=== PATIENT | female | born 1965 | race Caucasian/White ===

== ENCOUNTER 2017-04-07 15:35 | Inpatient (IN) | payer OTHER ==
[~2017-04-07] VITALS: Ht 165.1 cm; Wt 100.1 kg
[~2017-04-07 15:35] MED LIST: AMBEREN; AMLO-280 PO; AMLO5TAB2 PO; ASPI-515 PO; CYCL-259 PO; FOLI-17 PO; FURO40TA6 PO; LACT20SO13 PO; LISI-167 PO; METH500T97 PO; MULT-6 PO; OXYC5TAB3 PO; PANT40TA5 PO; PARO10TA24 PO; POTA20PA8 PO; PRAV10TA2 PO; RISP1TAB45 PO; THIA100T6 PO; TRAZ50TA18 PO; [UNRECOGNIZED DRUG - OTHER] PO
[2017-04-07] MEDS ORDERED: SODIUM CHLORIDE 0.9% 1,000 ML IV ONE (16:59)
[2017-04-07] MEDS ORDERED: SODIUM CHLORIDE FLUSH 10ML SYR IVF ONE (17:00)
[2017-04-07] MEDS ORDERED: ONDANSETRON 2MG/ML, 2ML IVPush ONE (17:00)
[2017-04-07] MEDS ORDERED: MORPHINE SULFATE 4 MG/ML, 1ML ONE ×2 (17:04→18:15)
[2017-04-07] MEDS ORDERED: ONDANSETRON 2MG/ML, 2ML ONE (17:04)
[2017-04-07] MEDS: MORPHINE SULFATE 4 MG/ML, 1ML IVPush PRN ×2 (17:11→18:20)
[2017-04-07] MEDS ORDERED: AMLO10TA2 PO (17:21)
[2017-04-07 17:30] LABS: ASPARTATE AMINO TRANSFERASE 30 U/L (15-37); BLOOD UREA NITROGEN 20 mg/dL (7-18)
[2017-04-07] MEDS ORDERED: ONDANSETRON 2MG/ML, 2ML IVPush PRN (18:00)
[2017-04-07] MEDS ORDERED: POLYETHYLENE GLYCOL 17 GM PACKET PO PRN (18:00)
[2017-04-07] MEDS ORDERED: ACETAMINOPHEN 325 MG TABLET PO PRN (18:00)
[2017-04-07] MEDS ORDERED: BISACODYL 10 MG SUPP PR PRN (18:00)
[2017-04-07] MEDS ORDERED: hydrALAzine 20 MG/ML, 1ML IV PRN (18:00)
[2017-04-07 19:01] VITALS: BP 138/80
[2017-04-07] MEDS: TRAZODONE 50MG TABLET PO SCH (21:23)
[2017-04-07] MEDS: SODIUM CHLORIDE 0.9% 1,000 ML IV SCH (21:23)
[2017-04-07] MEDS: morphine SULFATE 10 MG/ML, 1ML IVPush PRN ×2 (21:23→21:45)
[2017-04-07] MEDS: CHLORTHALIDONE 25 MG TABLET PO SCH (21:24)
[2017-04-08 03:05] VITALS: BP 149/78
[2017-04-08] MEDS: morphine SULFATE 10 MG/ML, 1ML IVPush PRN ×5 (03:17→21:21)
[2017-04-08 05:45] LABS: BLOOD UREA NITROGEN 22 mg/dL (7-18)
[2017-04-08 05:50] LABS: ASPARTATE AMINO TRANSFERASE 17 U/L (15-37)
[2017-04-08] MEDS: SODIUM CHLORIDE 0.9% 1,000 ML IV SCH ×2 (07:25→21:21)
[2017-04-08 07:50] VITALS: BP 133/72
[2017-04-08] MEDS ORDERED: CHLORTHALIDONE 25 MG TABLET PO SCH (09:00)
[2017-04-08] MEDS: PAROXETINE 10 MG TABLET PO SCH (09:03)
[2017-04-08] MEDS: MULTIVITAMIN 1 TABLET PO SCH (09:09)
[2017-04-08] MEDS: AMLODIPINE 5 MG TABLET PO SCH (09:09)
[2017-04-08] MEDS: SENNA/DOCUSATE TABLET PO SCH (09:09)
[2017-04-08] MEDS: CHLORTHALIDONE 25 MG TABLET PO SCH (09:09)
[2017-04-08 14:00] VITALS: BP 137/71
[2017-04-08] MEDS ORDERED: MIDAZOLAM 1 MG/ML, 2ML ONE (17:11)
[2017-04-08] MEDS ORDERED: KETAMINE 10 MG/ML, 20ML ONE (17:11)
[2017-04-08] MEDS ORDERED: FENTANYL PF 250 MCG/5ML ONE (17:11)
[2017-04-08] MEDS ORDERED: DEXAMETHASONE 4 MG/ML, 1ML ONE (17:15)
[2017-04-08] MEDS ORDERED: EPHEDRINE 50 MG/ML, 1ML ONE (17:15)
[2017-04-08] MEDS ORDERED: CEFAZOLIN 1,000 MG ONE (17:15)
[2017-04-08] MEDS ORDERED: NEOSTIGMINE 1 MG/ML, 10ML ONE ×2 (17:15)
[2017-04-08] MEDS ORDERED: PROPOFOL 10 MG/ML, 20ML ONE (17:15)
[2017-04-08] MEDS ORDERED: SUCCINYLCHOLINE 20 MG/ML, 10ML ONE (17:15)
[2017-04-08] MEDS ORDERED: ROCURONIUM 10 MG/ML ONE (17:15)
[2017-04-08] MEDS ORDERED: FENTANYL PF 100 MCG/2ML ONE (18:29)
[2017-04-08] MEDS ORDERED: ACETAMINOPHEN 650 MG/20.3 ML UDC ONE (18:29)
[2017-04-08] MEDS ORDERED: OXYcodone 5 MG/5 ML ORAL.SOL UDC ONE (18:29)
[2017-04-08] MEDS ORDERED: LABETALOL 5MG/ML, 20ML IV PRN (18:30)
[2017-04-08] MEDS ORDERED: ONDANSETRON 2MG/ML, 2ML IVPush PRN (18:30)
[2017-04-08] MEDS ORDERED: OXYcodone 5 MG/5 ML ORAL.SOL UDC PO PRN (18:30)
[2017-04-08] MEDS ORDERED: PROMETHAZINE 25 MG/ML, 1ML IV PRN (18:30)
[2017-04-08] MEDS ORDERED: HYDROcodone/APAP 7.5-325MG/15ML UDC PO PRN (18:30)
[2017-04-08] MEDS ORDERED: EPHEDRINE 50 MG/ML, 1ML IVPush PRN (18:30)
[2017-04-08] MEDS ORDERED: HYDROmorphone 1 MG/ML, 1ML IV PRN (18:30)
[2017-04-08] MEDS ORDERED: hydrALAzine 20 MG/ML, 1ML IV PRN (18:30)
[2017-04-08] MEDS ORDERED: MIDAZOLAM 1 MG/ML, 2ML IV PRN ×3 (18:30→19:00)
[2017-04-08] MEDS ORDERED: MEPERIDINE/PF 25MG/0.5ML ONE (18:30)
[2017-04-08] MEDS ORDERED: ACETAMINOPHEN 325 MG TABLET PO PRN (18:30)
[2017-04-08] MEDS: FENTANYL PF 100 MCG/2ML IV PRN ×2 (18:33→19:25)
[2017-04-08 20:13] VITALS: BP 122/69
[2017-04-08] MEDS: TRAZODONE 50MG TABLET PO SCH (21:21)
[2017-04-08] MEDS: CEFAZOLIN PMX 1GM/50ML 50 ML IV SCH (21:34)
[2017-04-08] MEDS ORDERED: METH500T97 PO (21:48)
[2017-04-08] MEDS: HEPARIN 5,000 UNITS/ML, 1ML SQ SCH (22:22)
[2017-04-09 00:25] VITALS: BP 113/62
[2017-04-09] MEDS: OXYcodone/APAP 5/325MG TABLET PO PRN ×6 (01:28→21:30)
[2017-04-09] MEDS: METHOCARBAMOL 500 MG TABLET PO PRN ×2 (01:28→15:45)
[2017-04-09 04:03] VITALS: BP 112/89
[2017-04-09] MEDS: SODIUM CHLORIDE 0.9% 1,000 ML IV SCH ×4 (05:10→16:35)
[2017-04-09] MEDS: HEPARIN 5,000 UNITS/ML, 1ML SQ SCH ×3 (05:10→21:30)
[2017-04-09 06:21] LABS: BLOOD UREA NITROGEN 14 mg/dL (7-18)
[2017-04-09] MEDS: PAROXETINE 10 MG TABLET PO SCH (09:10)
[2017-04-09] MEDS: AMLODIPINE 5 MG TABLET PO SCH (09:10)
[2017-04-09] MEDS: CHLORTHALIDONE 25 MG TABLET PO SCH (09:10)
[2017-04-09] MEDS: SENNA/DOCUSATE TABLET PO SCH ×2 (09:10→16:00)
[2017-04-09] MEDS: MULTIVITAMIN 1 TABLET PO SCH (09:10)
[2017-04-09] MEDS: CEFAZOLIN PMX 1GM/50ML 50 ML IV SCH (13:10)
[2017-04-09] MEDS: TRAZODONE 50MG TABLET PO SCH (21:30)
[2017-04-10] MEDS: OXYcodone/APAP 5/325MG TABLET PO PRN ×7 (01:22→22:02)
[2017-04-10] MEDS: SODIUM CHLORIDE 0.9% 1,000 ML IV SCH ×4 (02:00→21:46)
[2017-04-10] MEDS: HEPARIN 5,000 UNITS/ML, 1ML SQ SCH ×3 (05:30→21:40)
[2017-04-10] MEDS: SENNA/DOCUSATE TABLET PO SCH (06:00)
[2017-04-10] MEDS: CHLORTHALIDONE 25 MG TABLET PO SCH (09:00)
[2017-04-10] MEDS: MULTIVITAMIN 1 TABLET PO SCH (09:20)
[2017-04-10] MEDS: AMLODIPINE 5 MG TABLET PO SCH (09:20)
[2017-04-10] MEDS: PAROXETINE 10 MG TABLET PO SCH (09:20)
[2017-04-10 15:30] VITALS: BP 162/93
[2017-04-10] MEDS: METHOCARBAMOL 500 MG TABLET PO PRN (21:39)
[2017-04-10] MEDS: TRAZODONE 50MG TABLET PO SCH (21:39)
[2017-04-10 22:00] VITALS: BP 178/96
[2017-04-10] MEDS ORDERED: TEMAZEPAM 15 MG CAPSULE PO ONE (23:00)
[2017-04-11] MEDS: OXYcodone/APAP 5/325MG TABLET PO PRN ×3 (03:31→12:41)
[2017-04-11 03:35] VITALS: BP 153/83
[2017-04-11] MEDS: HEPARIN 5,000 UNITS/ML, 1ML SQ SCH ×2 (05:58→13:28)
[2017-04-11 07:49] VITALS: BP 159/92
[2017-04-11] MEDS: CHLORTHALIDONE 25 MG TABLET PO SCH (07:50)
[2017-04-11] MEDS: AMLODIPINE 5 MG TABLET PO SCH (07:51)
[2017-04-11] MEDS: SENNA/DOCUSATE TABLET PO SCH (07:52)
[2017-04-11] MEDS: PAROXETINE 10 MG TABLET PO SCH (07:55)
[2017-04-11] MEDS: MULTIVITAMIN 1 TABLET PO SCH (07:55)
[2017-04-11] MEDS ORDERED: POLY17PO5 PO (13:16)
[2017-04-11] MEDS ORDERED: TRAM50TA2 PO (13:16)
[2017-04-11 13:27] VITALS: BP 149/84
[2017-04-11] MEDS ORDERED: FENTANYL 25 MCG PATCH TD SCH (13:30)
[2017-04-11] MEDS ORDERED: FENT1PAT77 TD (15:11)
[2017-04-11 16:12] VITALS: BP 148/86
[2017-04-14] MEDS ORDERED: FENTANYL REMOVE PATCH NOTE XX SCH (13:30)
== END 2017-04-11 16:21 | DRG 481 ==
LOC: ED 17:46 → EDIP 18:00 → 4NOR 18:50
PROVIDERS: ADMIT Internal Medicine; ATTEND Internal Medicine
PROC: 0QS734Z Reposition Left Upper Femur with Internal Fixation Device, Percutaneous Approach (ICD-10-PCS; principal; 2017-04-08 13:00)
DX: S72.002A Fracture of unspecified part of neck of left femur, initial encounter for closed fracture (principal); I69.954 Hemiplegia and hemiparesis following unspecified cerebrovascular disease affecting left non-dominant side; I10 Essential (primary) hypertension; D72.829 Elevated white blood cell count, unspecified; E78.5 Hyperlipidemia, unspecified; E66.01 Morbid (severe) obesity due to excess calories; F32.9 Major depressive disorder, single episode, unspecified; F41.9 Anxiety disorder, unspecified; G47.00 Insomnia, unspecified; M54.9 Dorsalgia, unspecified; R42 Dizziness and giddiness; W07.XXXA Fall from chair, initial encounter; G89.29 Other chronic pain; Z68.36 Body mass index [BMI] 36.0-36.9, adult; Z80.9 Family history of malignant neoplasm, unspecified; Z82.49 Family history of ischemic heart disease and other diseases of the circulatory system; Z86.14 Personal history of Methicillin resistant Staphylococcus aureus infection; Z87.891 Personal history of nicotine dependence; Z99.3 Dependence on wheelchair; Y93.89 Activity, other specified; Y92.098 Other place in other non-institutional residence as the place of occurrence of the external cause; Y99.8 Other external cause status
CPT/HCPCS: 36415; 71010; 76000; 80048; 80053; 80061; 81001; 81003; 84703; 85025; 85027; 85610; 85730; 93005; 96361; 96374; 96375; 96376; C1713; J0690; J1100; J1644; J2250; J2405; J2704; J2710; J3010; J0330; J0360; J2270; J7030

== ENCOUNTER → 2017-06-20 | Outpatient (CLI) | payer OTHER ==
[~2017-06-20] MED LIST changes: +AMLO10TA2 PO; +FENT1PAT77 TD; +FENTANYL PF 100 MCG/2ML ONE; +GADOBUTROL 10 MMOL/10 ML PFS ONE; +MIDAZOLAM 1 MG/ML, 5ML ONE; +POLY17PO5 PO; +TRAM50TA2 PO
== END | disposition home or self-care (01) ==
LOC: RAD 13:45
PROVIDERS: ATTEND Registered Nurse
DX: I61.5 Nontraumatic intracerebral hemorrhage, intraventricular (principal)
CPT/HCPCS: 70544; 70553; 99156; 99157; A9585; J2250; J3010

== ENCOUNTER 2017-11-02 06:55 | Inpatient (IN) | payer OTHER ==
[~2017-11-02] VITALS: Ht 165.1 cm; Wt 92.2 kg
[~2017-11-02 06:55] MED LIST changes: -AMLO-280 PO; +AMLO-302 PO; -FENTANYL PF 100 MCG/2ML ONE; -GADOBUTROL 10 MMOL/10 ML PFS ONE; -MIDAZOLAM 1 MG/ML, 5ML ONE; -PARO10TA24 PO; +PARO10TA56 PO; +POTA20PA25 PO; -POTA20PA8 PO
[2017-11-02 07:50] LABS: BASOPHILS # (AUTO) 0.05 x10^3/uL (0-0.1); BASOPHILS % (AUTO) 1 % (0-1); EOSINOPHILS # (AUTO) 0.11 x10^3/uL (0-0.4); EOSINOPHILS % (AUTO) 2 % (1-7); LYMPHOCYTES # (AUTO) 2.52 x10^3/uL (1-3.4); LYMPHOCYTES % (AUTO) 39 % (22-44); MD NO; MEAN CORPUSCULAR HEMOGLOBIN 30.9 pg (27.0-34.8); MEAN CORPUSCULAR HGB CONC 34.3 g/dL (32.4-35.8); MEAN CORPUSCULAR VOLUME 90.1 fL (80-100); MEAN PLATELET VOLUME 7.4 fL (7.4-10.4); MONOCYTES # (AUTO) 0.54 x10^3/uL (0.2-0.8); MONOCYTES % (AUTO) 8 % (2-9); NEUTROPHILS # (AUTO) 3.32 x10^3/uL (1.8-6.8); NEUTROPHILS % (AUTO) 51 % (42-75); PLATELET COUNT 356 x10^3/uL (130-400); RED BLOOD COUNT 4.79 x10^6/uL (3.82-5.3); RED CELL DISTRIBUTION WIDTH 13.9 % (9.6-15.2)
[2017-11-02 08:02] LABS: ALBUMIN 3.1 g/dL (3.4-5.0); ANION GAP 6 mmol/L (5-15); CALCIUM 8.4 mg/dL (8.5-10.1); CHLORIDE 108 mmol/L (98-107); CREATININE 0.73 mg/dL (0.55-1.02)
[2017-11-02] MEDS ORDERED: GABA250S3 PO (08:33)
[2017-11-02] MEDS ORDERED: TIZA4TAB PO (08:35)
[2017-11-02 08:39] LABS: MICROSCOPIC NOT IND
[2017-11-02 08:44] LABS: CULTURE INDICATED? NO
[2017-11-02] MEDS ORDERED: SODIUM CHLORIDE FLUSH 10ML SYR IVF ONE ×2 (10:00→13:00)
[2017-11-02] MEDS ORDERED: LORazepam 2 MG/ML, 1ML IVPush ONE ×2 (10:00→11:30)
[2017-11-02] MEDS ORDERED: LORazepam 2 MG/ML, 1ML ONE ×2 (10:03→11:10)
[2017-11-02] MEDS ORDERED: GADOBUTROL 7.5 MMOL/7.5 ML PFS ONE (11:43)
[2017-11-02] MEDS ORDERED: TIZANIDINE 4MG TABLET PO ONE (14:00)
[2017-11-02] MEDS ORDERED: ONDANSETRON 2MG/ML, 2ML IVPush PRN (14:30)
[2017-11-02] MEDS ORDERED: DOCUSATE 100 MG CAPSULE PO PRN (14:30)
[2017-11-02] MEDS ORDERED: ENOXAPARIN 40 MG/0.4 ML SQ SCH (14:30)
[2017-11-02] MEDS ORDERED: HYDROcodone/APAP 5/325 TABLET ONE (15:38)
[2017-11-02] MEDS: HYDROcodone/APAP 5/325 TABLET PO PRN ×2 (15:40→20:49)
[2017-11-02] MEDS: GABAPENTIN 250 MG/5 ML ORAL SOL PO SCH ×2 (16:00→21:00)
[2017-11-02] MEDS: TIZANIDINE 4MG TABLET PO SCH ×2 (16:00→20:48)
[2017-11-02 16:56] VITALS: BP 143/97
[2017-11-02 19:50] VITALS: BP 132/83
[2017-11-02] MEDS ORDERED: DIPHENHYDRAMINE 25 MG CAPSULE PO PRN (20:15)
[2017-11-02] MEDS: ASPIRIN 81 MG TABLET EC PO SCH (20:48)
[2017-11-02] MEDS ORDERED: TRAZODONE 50MG TABLET PO SCH (21:00)
[2017-11-02] MEDS ORDERED: ATORVASTATIN 40 MG TABLET PO SCH (21:00)
[2017-11-03 01:33] VITALS: BP 131/81
[2017-11-03] MEDS: HYDROcodone/APAP 5/325 TABLET PO PRN ×2 (04:20→10:31)
[2017-11-03 05:07] LABS: HCT (SEDRATE) 43.4 % (34.6-47.8)
[2017-11-03 05:31] LABS: CHOL/HDL RATIO 2.9; LDL/HDL RATIO 1.1 (0.5-3.0)
[2017-11-03] MEDS: ASPIRIN 81 MG TABLET EC PO SCH (05:53)
[2017-11-03] MEDS: TIZANIDINE 4MG TABLET PO SCH ×2 (06:01→13:45)
[2017-11-03 06:39] VITALS: BP 152/96
[2017-11-03 06:42] VITALS: BP 150/92
[2017-11-03] MEDS ORDERED: PAROXETINE 10 MG TABLET PO SCH (09:00)
[2017-11-03] MEDS ORDERED: POLYETHYLENE GLYCOL 17 GM PACKET PO SCH (09:00)
[2017-11-03] MEDS: GABAPENTIN 250 MG/5 ML ORAL SOL PO SCH (09:00)
[2017-11-03] MEDS ORDERED: ASPI-621 PO (12:13)
[2017-11-03 13:23] VITALS: BP 159/112
[2017-11-03] MEDS ORDERED: TRAZODONE 50MG TABLET PO SCH (21:00)
== END 2017-11-03 14:12 | disposition home or self-care (01) | DRG 65 ==
LOC: ED 08:39 → EDIP 12:50 → SUATTDRO 13:35 → 4WST 16:05
PROVIDERS: ADMIT Family Medicine; ATTEND Internal Medicine
DX: I63.9 Cerebral infarction, unspecified (principal); G81.94 Hemiplegia, unspecified affecting left nondominant side; G93.89 Other specified disorders of brain; G47.00 Insomnia, unspecified; F32.9 Major depressive disorder, single episode, unspecified; G89.29 Other chronic pain; I10 Essential (primary) hypertension; G83.24 Monoplegia of upper limb affecting left nondominant side; R26.2 Difficulty in walking, not elsewhere classified; Z79.82 Long term (current) use of aspirin; Z80.8 Family history of malignant neoplasm of other organs or systems; Z87.891 Personal history of nicotine dependence; I69.398 Other sequelae of cerebral infarction
CPT/HCPCS: 36415; 70450; 70553; 80048; 80061; 81003; 82040; 85025; 85651; 93005; 93306; 93880; 96374; 96376; A9585; J1650; J2060; Q0163

== ENCOUNTER 2018-02-20 13:17 | Emergency (ER) | payer OTHER ==
[~2018-02-20] VITALS: Ht 165.1 cm; Wt 88.6 kg
[~2018-02-20 13:17] MED LIST changes: +ASPI-621 PO; +CEFD300C37 PO; +GABA250S3 PO; +TIZA4TAB PO
[2018-02-20] MEDS ORDERED: OXYcodone/APAP 5/325MG TABLET PO ONE (14:00)
[2018-02-20] MEDS ORDERED: KETOROLAC 30 MG/1 ML IM ONE (14:00)
[2018-02-20] MEDS ORDERED: DIAZEPAM 5 MG TABLET PO ONE (14:00)
[2018-02-20] MEDS ORDERED: OXYcodone/APAP 5/325MG TABLET ONE (14:06)
[2018-02-20] MEDS ORDERED: KETOROLAC 30 MG/1 ML ONE (14:06)
[2018-02-20] MEDS ORDERED: DIAZEPAM 5 MG TABLET ONE (14:06)
[2018-02-20 16:39] VITALS: BP 148/95
== END 2018-02-20 16:47 | disposition home or self-care (01) ==
LOC: ED 16:20
DX: S39.012A Strain of muscle, fascia and tendon of lower back, initial encounter (principal); I10 Essential (primary) hypertension; E78.5 Hyperlipidemia, unspecified; W18.39XA Other fall on same level, initial encounter; Y93.89 Activity, other specified; Y92.89 Other specified places as the place of occurrence of the external cause; Y99.8 Other external cause status; Z86.73 Personal history of transient ischemic attack (TIA), and cerebral infarction without residual deficits
CPT/HCPCS: 72110; 73502; 96372; 99284; J1885

== ENCOUNTER 2018-07-01 14:58 | Inpatient (IN) | payer OTHER ==
[~2018-07-01] VITALS: Ht 162.6 cm; Wt 82.2 kg
[~2018-07-01 14:58] MED LIST changes: -THIA100T6 PO; +THIA100T67 PO; +TRAZ-136 PO; -TRAZ50TA18 PO
[2018-07-01] MEDS ORDERED: HYDR-3245 PO (17:19)
[2018-07-01] MEDS ORDERED: ESTR10TA4 VG (17:23)
[2018-07-01] MEDS ORDERED: COCO1000 PO (17:24)
[2018-07-01] MEDS ORDERED: OLIV250C PO (17:24)
[2018-07-01 17:50] LABS: BASOPHILS # (AUTO) 0.03 x10^3/uL (0-0.1); BASOPHILS % (AUTO) 0 % (0-1); MD NO; NEUTROPHILS # (AUTO) 3.92 x10^3/uL (1.8-6.8)
[2018-07-01] MEDS ORDERED: SODIUM CHLORIDE FLUSH 10ML SYR IVF ONE (18:00)
[2018-07-01 18:07] LABS: ANION GAP 5 mmol/L (5-15); CALCIUM 8.3 mg/dL (8.5-10.1); CHLORIDE 107 mmol/L (98-107); CREATININE 0.62 mg/dL (0.55-1.02)
[2018-07-01 18:22] LABS: EOSINOPHILS # (AUTO) 0.04 x10^3/uL (0-0.4); EOSINOPHILS % (AUTO) 1 % (1-7); LYMPHOCYTES # (AUTO) 3.04 x10^3/uL (1-3.4); LYMPHOCYTES % (AUTO) 40 % (22-44); MEAN CORPUSCULAR HEMOGLOBIN 30.8 pg (27.0-34.8); MEAN CORPUSCULAR HGB CONC 33.7 g/dL (32.4-35.8); MEAN CORPUSCULAR VOLUME 91.4 fL (80-100); MEAN PLATELET VOLUME 8.8 fL (7.4-10.4); MONOCYTES # (AUTO) 0.49 x10^3/uL (0.2-0.8); MONOCYTES % (AUTO) 7 % (2-9); NEUTROPHILS % (AUTO) 52 % (42-75); PLATELET COUNT 343 x10^3/uL (130-400); RED BLOOD COUNT 4.91 x10^6/uL (3.82-5.3); RED CELL DISTRIBUTION WIDTH 12.4 % (9.6-15.2)
[2018-07-01] MEDS ORDERED: POLYETHYLENE GLYCOL 17 GM PACKET PO PRN (19:00)
[2018-07-01] MEDS ORDERED: ACETAMINOPHEN 325 MG TABLET PO PRN (19:00)
[2018-07-01] MEDS ORDERED: BISACODYL 10 MG SUPP PR PRN (19:00)
[2018-07-01] MEDS ORDERED: ESTRADIOL 10 MCG VG SCH (19:00)
[2018-07-01] MEDS ORDERED: ONDANSETRON 2MG/ML, 2ML IVPush PRN (19:00)
[2018-07-01 19:25] VITALS: BP 124/82
[2018-07-01] MEDS ORDERED: COCONUT OIL PO SCH (21:00)
[2018-07-01] MEDS: SODIUM CHLORIDE FLUSH 10ML SYR IVF SCH (21:00)
[2018-07-01] MEDS: TIZANIDINE 4MG TABLET PO SCH (21:24)
[2018-07-01] MEDS: TRAZODONE 50MG TABLET PO SCH (21:24)
[2018-07-01] MEDS: OXYcodone IR 5MG TABLET PO PRN (23:50)
[2018-07-02 01:48] VITALS: BP 144/93
[2018-07-02] MEDS: OXYcodone IR 5MG TABLET PO PRN ×2 (04:01→09:10)
[2018-07-02] MEDS: ASPIRIN 81 MG TABLET EC PO SCH (05:27)
[2018-07-02] MEDS: TIZANIDINE 4MG TABLET PO SCH ×3 (06:11→21:10)
[2018-07-02 07:21] VITALS: BP 138/82
[2018-07-02] MEDS ORDERED: ESTRADIOL 10 MCG VG SCH (09:00)
[2018-07-02] MEDS: SENNA/DOCUSATE TABLET PO SCH (09:10)
[2018-07-02] MEDS: PAROXETINE 10 MG TABLET PO SCH (09:10)
[2018-07-02] MEDS: SODIUM CHLORIDE FLUSH 10ML SYR IVF SCH ×2 (09:10→21:10)
[2018-07-02 13:07] VITALS: BP 101/65
[2018-07-02 20:13] VITALS: BP 114/79
[2018-07-02] MEDS ORDERED: OLIVE LEAF EXTRACT PO SCH (21:00)
[2018-07-02] MEDS: TRAZODONE 50MG TABLET PO SCH (21:10)
[2018-07-02] MEDS: HYDROcodone/APAP 10/325 MG TABLET PO PRN (21:25)
[2018-07-02] MEDS ORDERED: DIPHENHYDRAMINE 25 MG CAPSULE ONE (21:39)
[2018-07-02] MEDS ORDERED: DIPHENHYDRAMINE 25 MG CAPSULE PO PRN (22:00)
[2018-07-03 01:39] VITALS: BP 128/84
[2018-07-03] MEDS: TIZANIDINE 4MG TABLET PO SCH ×3 (02:21→10:05)
[2018-07-03] MEDS: ASPIRIN 81 MG TABLET EC PO SCH (05:39)
[2018-07-03 06:45] VITALS: BP 100/65
[2018-07-03 09:00] VITALS: BP 118/81
[2018-07-03] MEDS: SENNA/DOCUSATE TABLET PO SCH (09:00)
[2018-07-03] MEDS ORDERED: ESTRADIOL 10 MCG VG SCH (09:00)
[2018-07-03] MEDS: HYDROcodone/APAP 10/325 MG TABLET PO PRN (09:00)
[2018-07-03] MEDS: SODIUM CHLORIDE FLUSH 10ML SYR IVF SCH (09:00)
[2018-07-03] MEDS: PAROXETINE 10 MG TABLET PO SCH (09:00)
[2018-07-03 12:40] VITALS: BP 157/80
== END 2018-07-03 16:05 | disposition home or self-care (01) | DRG 563 ==
LOC: ED 17:11 → EDIP 17:37 → 3NE 18:04
PROVIDERS: ADMIT Internal Medicine; ATTEND Internal Medicine
DX: S93.402A Sprain of unspecified ligament of left ankle, initial encounter (principal); F11.20 Opioid dependence, uncomplicated; I69.354 Hemiplegia and hemiparesis following cerebral infarction affecting left non-dominant side; R62.7 Adult failure to thrive; S83.92XA Sprain of unspecified site of left knee, initial encounter; R01.1 Cardiac murmur, unspecified; E78.5 Hyperlipidemia, unspecified; F32.9 Major depressive disorder, single episode, unspecified; G47.00 Insomnia, unspecified; I10 Essential (primary) hypertension; Z66 Do not resuscitate; W05.0XXA Fall from non-moving wheelchair, initial encounter; Y92.89 Other specified places as the place of occurrence of the external cause; Y99.8 Other external cause status; Y93.89 Activity, other specified; Z80.9 Family history of malignant neoplasm, unspecified; Z82.49 Family history of ischemic heart disease and other diseases of the circulatory system; Z91.81 History of falling; Z87.891 Personal history of nicotine dependence
CPT/HCPCS: 36415; 80048; 85025; 99285; Q0163